=== PATIENT | female | born 1990 | race Hispanic/Latino ===

== ENCOUNTER 2017-10-02 19:24 | Emergency (ER) | payer OTHER ==
[~2017-10-02] VITALS: Ht 149.9 cm; Wt 81.6 kg
[2017-10-02 19:47] VITALS: BP 125/80
== END 2017-10-02 22:02 | disposition admitted as inpatient to this hospital (09) ==
LOC: ERH 19:24
DX: R51 Headache (principal); R11.2 Nausea with vomiting, unspecified
CPT/HCPCS: 81025